=== PATIENT | female | born 1990 | race Caucasian/White ===

== ENCOUNTER 2018-01-13 09:26 | Inpatient (IN) | payer MEDICAID ==
[2018-01-13] MEDS ORDERED: METHYLERGONOVINE 0.2 MG INJ IM ×3 (10:00→18:30)
[2018-01-13] MEDS ORDERED: CARBOPROST 250 MCG INJ IM ×3 (10:00→18:30)
[2018-01-13] MEDS ORDERED: CEFAZOLIN 2 GM/50 ML (PMX) 50 ML IV (10:00)
[2018-01-13] MEDS ORDERED: OXYTOCIN 30 UNITS/LR 500 ML IV ×4 (10:00→18:30)
[2018-01-13] MEDS ORDERED: MISOPROSTOL 200 MCG TAB PR ×3 (10:00→18:30)
[2018-01-13 10:29] LABS: ADD MAN DIFF? NO
[2018-01-13 10:33] LABS: WHITE BLOOD COUNT 6.4 10^3/ul (4.8-10.8)
[2018-01-13 10:34] LABS: BASOPHILS % 0.5 % (0.0-2.0); EOSINOPHILS # 0.1 10^3/ul (0.0-0.5); EOSINOPHILS % 1.6 % (0.0-7.0); HEMATOCRIT 37.3 % (37.0-47.0); HEMOGLOBIN 12.4 g/dl (12.0-16.0); LYMPHOCYTES # 1.8 10^3/ul (0.8-2.9); MEAN CORPUSCULAR HEMOGLOBIN 28.4 pg (29.0-33.0); MEAN CORPUSCULAR HGB CONC 33.2 g/dl (32.0-37.0); MEAN CORPUSCULAR VOLUME 85.4 fl (82.0-101.0); MEAN PLATELET VOLUME 11.4 fl (7.4-10.4); MONOCYTE # 0.4 10^3/ul (0.3-0.9); MONOCYTES % 6.1 % (0.0-11.0); NEUTROPHIL # 4.1 10^3/ul (1.6-7.5); NEUTROPHILS % 63.2 % (39.0-77.0); PLATELET COUNT 226 10^3/UL (140-415); RED BLOOD COUNT 4.37 10^6/ul (4.20-5.40); RED CELL DISTRIBUTION WIDTH 14.6 % (11.5-14.5)
[2018-01-13] MEDS: LACTATED RINGER'S 1,000 ML IV (10:48)
[2018-01-13 10:52] LABS: INR 0.94; PROTIME 12.7 Sec (11.9-14.9)
[2018-01-13 10:53] LABS: PARTIAL THROMBOPLASTIN TIME 26.9 Sec (25.0-35.0)
[2018-01-13] MEDS ORDERED: FENTAnyl 50 MCG/ML VIAL (13:07)
[2018-01-13] MEDS ORDERED: morphine SULFATE/PF (10 MG/10 ML) INJ (13:07)
[2018-01-13] MEDS ORDERED: PHENYLephrine (100 MCG/ML) 5ML SYG (13:08)
[2018-01-13] MEDS ORDERED: ONDANSETRON 4 MG INJ (13:20)
[2018-01-13] MEDS ORDERED: DEXAMETHASONE 4 MG/ML 1 ML INJ (13:20)
[2018-01-13] MEDS: CEFAZOLIN 1 GM/50 ML (PMX) 50 ML IVPB ×2 (13:20→21:42)
[2018-01-13] MEDS ORDERED: ONDANSETRON 4 MG INJ IV (14:00)
[2018-01-13] MEDS ORDERED: NALOXONE (0.4 MG/ML) INJ IV (14:00)
[2018-01-13] MEDS ORDERED: HYDROmorphONE 0.5 MG/0.5 ML SYG IV ×2 (14:00)
[2018-01-13] MEDS: OXYTOCIN 30 UNITS/LR 500 ML IV ×3 (14:46→23:20)
[2018-01-13] MEDS ORDERED: HYDROCODONE/APAP (5/325) TAB PO ×4 (15:30→18:30)
[2018-01-13] MEDS ORDERED: OXYCODONE/ACETAMINOPHEN (5/325) TAB PO ×3 (15:30→18:30)
[2018-01-13] MEDS ORDERED: LANOLIN 7 GM TUBE TOP ×2 (15:30→18:30)
[2018-01-13] MEDS: DIPHENHYDRAMINE 50 MG INJ IV (15:35)
[2018-01-13 15:36] LABS: RAPID PLASMA REAGIN NONREACTIVE (NR)
[2018-01-13] MEDS: KETOROLAC 30 MG INJ IV ×2 (16:32→23:16)
[2018-01-13] MEDS ORDERED: CEFAZOLIN 1 GM/50 ML (PMX) 50 ML IVPB (18:30)
[2018-01-13] MEDS ORDERED: SENNA/DOCUSATE NA (8.6MG/50MG) TAB PO (21:00)
[2018-01-14] MEDS: OXYTOCIN 30 UNITS/LR 500 ML IV ×2 (02:03→06:03)
[2018-01-14] MEDS: LACTATED RINGER'S 1,000 ML IV ×2 (03:37→11:30)
[2018-01-14] MEDS: DIPHENHYDRAMINE 50 MG INJ IV (04:25)
[2018-01-14 08:23] LABS: ADD MAN DIFF? NO
[2018-01-14 08:26] LABS: BASOPHILS % 0.3 % (0.0-2.0); EOSINOPHILS # 0.1 10^3/ul (0.0-0.5); EOSINOPHILS % 0.5 % (0.0-7.0); HEMOGLOBIN 10.1 g/dl (12.0-16.0); LYMPHOCYTES # 2.5 10^3/ul (0.8-2.9); LYMPHOCYTES % 22.6 % (15.0-51.0); MEAN CORPUSCULAR HGB CONC 34.8 g/dl (32.0-37.0); MEAN CORPUSCULAR VOLUME 83.3 fl (82.0-101.0); MEAN PLATELET VOLUME 11.5 fl (7.4-10.4); MONOCYTE # 0.8 10^3/ul (0.3-0.9); MONOCYTES % 7.3 % (0.0-11.0); NEUTROPHIL # 7.5 10^3/ul (1.6-7.5); NEUTROPHILS % 68.7 % (39.0-77.0); PLATELET COUNT 193 10^3/UL (140-415); RED BLOOD COUNT 3.48 10^6/ul (4.20-5.40); RED CELL DISTRIBUTION WIDTH 14.8 % (11.5-14.5)
[2018-01-14 08:26] LABS: WHITE BLOOD COUNT 10.9 10^3/ul (4.8-10.8)
[2018-01-14] MEDS: SENNA/DOCUSATE NA (8.6MG/50MG) TAB PO ×2 (08:29→20:31)
[2018-01-14] MEDS: OXYCODONE/ACETAMINOPHEN (5/325) TAB PO (15:06)
[2018-01-14] MEDS: IBUPROFEN 600 MG TAB PO ×2 (17:17→23:41)
[2018-01-14] MEDS ORDERED: IBUPROFEN 600 MG TAB PO (18:00)
[2018-01-15] MEDS: IBUPROFEN 600 MG TAB PO ×4 (05:37→23:31)
[2018-01-15] MEDS: SENNA/DOCUSATE NA (8.6MG/50MG) TAB PO ×2 (08:59→20:47)
[2018-01-15] MEDS: INFLUENZA VIRUS VACCINE 0.5 ML SYG IM* (10:13)
[2018-01-16] MEDS: IBUPROFEN 600 MG TAB PO ×2 (06:08→12:41)
[2018-01-16] MEDS ORDERED: DIPHTH/TET/ACEL PERTUSS (ADULT) 0.5 ML VIAL IM* (09:00)
[2018-01-16] MEDS: SENNA/DOCUSATE NA (8.6MG/50MG) TAB PO (09:25)
[2018-01-16] MEDS: DIPHTH/TET/ACEL PERTUSS (ADULT) 0.5 ML VIAL IM* (12:43)
== END 2018-01-16 14:54 | disposition home or self-care (01) | DRG 766 ==
LOC: L-D 09:26 → PP1 17:27
PROVIDERS: Obstetrics & Gynecology
PROC: 10D00Z1 Extraction of Products of Conception, Low, Open Approach (ICD-10-PCS; principal; 2018-01-13)
DX: O34.211 Maternal care for low transverse scar from previous cesarean delivery (principal); Z37.0 Single live birth; Z3A.39 39 weeks gestation of pregnancy
CPT/HCPCS: 85025; 85610; 85730; 86592; 86850; 86900; 86901; 99464